=== PATIENT | female | born 1980 | race Two or more races ===

== ENCOUNTER 2021-02-21 16:26 | Emergency (ER) | payer MEDICAID, OTHER ==
[~2021-02-21] VITALS: Ht 172.7 cm; Wt 77.1 kg
[2021-02-21 18:28] VITALS: BP 110/80
[2021-02-21] MEDS ORDERED: cefTRIAXone SOD 1,000 MG VL IM ONE (21:00)
== END 2021-02-21 21:34 | disposition home or self-care (01) ==
LOC: ER 16:26
DX: S30.810A Abrasion of lower back and pelvis, initial encounter (principal); X58.XXXA Exposure to other specified factors, initial encounter; Y93.89 Activity, other specified; Y92.89 Other specified places as the place of occurrence of the external cause; Y99.8 Other external cause status
CPT/HCPCS: 81025; 99283; J0696